=== PATIENT | female | born 1980 | race Caucasian/White ===

== ENCOUNTER 2017-06-18 14:43 | Inpatient (IN) | payer MEDICAID, OTHER ==
[~2017-06-18] VITALS: Ht 152.4 cm; Wt 74.9 kg
[~2017-06-18 14:43] MED LIST: ATEN25TA PO; HYDR12.5 PO; INSU100C10 SQ; INSU100V36 SQ; INSU100V9 SQ; LANTUS SUBCUT; PROP50TA3 MT
[2017-06-18 15:11] LABS: URINE HCG NEGATIVE (NEG)
[2017-06-18 15:13] LABS: CLARITY,URINE Turbid (Clear); COLOR,URINE Dark Yellow (Yellow); GLUCOSE, URINE Negative (Neg); KETONES,URINE Trace mg/dl (Neg); LEUKOCYTE ESTERASE ,URINE Moderate (Neg); NITRITES, URINE Negative (Neg); OCCULT BLOOD,URINE Small (Neg); PROTEIN,URINE 300 mg/dl (Neg)
[2017-06-18 15:19] LABS: UA COLLECTION TYPE CLN CATCH MIDSTREAM
[2017-06-18 15:20] LABS: BACTERIA,URINE FEW /HPF (Neg); RBC,URINE 0-2 /HPF (0-2); SQUAMOUS EPITHELIAL CELL,UR MANY /LPF (FEW)
[2017-06-18 15:21] LABS: MUCUS STRANDS FEW /LPF (Neg); WBC,URINE 30-50 /HPF (0-4)
[2017-06-18 15:21] LABS: BASOPHILS % (AUTO) 0.5 % (0-1); EOSINOPHILS % (AUTO) 0 % (0-6); HEMATOCRIT 45.3 % (35.0-45.0); LYMPHOCYTES # (AUTO) 2.2 X10'3 (1.1-4.8); LYMPHOCYTES % (AUTO) 38.6 % (21-51); MEAN CORPUSCULAR HEMOGLOBIN 26.2 PG (27.0-31.0); MEAN CORPUSCULAR HGB CONC 33.1 % (33.0-36.5); MEAN PLATELET VOLUME 8.4 FL (7.4-10.4); MONOCYTES # (AUTO) 0.5 X10'3 (0-0.9); MONOCYTES % (AUTO) 8.2 % (2-12); NEUTROPHILS % (AUTO) 52.7 % (42-75); PLATELET COUNT 257 X10'3 (140-440); RED BLOOD COUNT 5.74 X10'6 (4.20-5.60); RED CELL DISTRIBUTION WIDTH 13.7 % (11.5-14.5); WHITE BLOOD COUNT 5.7 X10'3 (4.5-11.0)
[2017-06-18 15:30] LABS: INR 0.9 INR; PROTHROMBIN TIME 9.4 SECONDS (9.0-12.0)
[2017-06-18] MEDS ORDERED: ondansetron/PF 4mg/2ml inj IV ONE ×2 (15:35→22:15)
[2017-06-18] MEDS ORDERED: normal saline 1000ML IV soln IVB ONE (15:35)
[2017-06-18 15:36] LABS: ALANINE AMINOTRANSFERASE 42 U/L (12-78); ALBUMIN 3.6 G/DL (3.4-5.0); ALBUMIN/GLOBULIN RATIO 0.7 (1.1-1.5); ALKALINE PHOSPHATASE 135 IU/L (46-116); ANION GAP 13 (8-16); ASPARTATE AMINO TRANSFERASE 18 U/L (10-37); BILIRUBIN,TOTAL 0.5 MG/DL (0.1-1.0); BLOOD UREA NITROGEN 8 MG/DL (7-18); BUN/CREATININE RATIO 10.3 (6.6-38.0); CHLORIDE 100 MMOL/L (99-107); CREATININE 0.78 MG/DL (0.40-0.90); GLUCOSE 206 MG/DL (70-104); LIPASE 149 U/L (73-393); POTASSIUM 3.3 MMOL/L (3.5-5.1); SODIUM 138 MMOL/L (135-145); TOTAL CARBON DIOXIDE 25.2 MMOL/L (24-32); TOTAL PROTEIN 8.5 G/DL (6.4-8.2); eGFR 83 ML/MIN
[2017-06-18] MEDS ORDERED: ondansetron 4mg rapidly disintigrating tab PO ONE (17:15)
[2017-06-18] MEDS ORDERED: HYDROmorphone inj. 0.5 MG/0.5 ML DISP.SYRIN IM ONE (17:55)
[2017-06-18] MEDS ORDERED: iohexol 300mg/ml 100ml inj. ONE (18:54)
[2017-06-18] MEDS ORDERED: METH10TA6 PO (19:53)
[2017-06-18] MEDS ORDERED: CefTRIAXone 2gm/NS 100ml IVPB 100 ML IV ONE (21:35)
[2017-06-18] MEDS ORDERED: HYDROmorphone 1 mg/ml syringe IV ONE (22:15)
[2017-06-18] MEDS ORDERED: HYDROmorphone 1 mg/ml syringe IV PRN (23:50)
[2017-06-18] MEDS ORDERED: magnesium hydroxide 30ml (MOM) UD suspension PO PRN (23:50)
[2017-06-18] MEDS ORDERED: vancomycin/NS 1 GM ADD-VANTAGE 250 ML IV ONE (23:50)
[2017-06-18] MEDS ORDERED: ondansetron/PF 4mg/2ml inj IV PRN (23:50)
[2017-06-18] MEDS ORDERED: mag hydrox/Alum hydrox/simeth 30ml oral suspension PO PRN (23:50)
[2017-06-18] MEDS ORDERED: dextrose 50%-water 50ml dispensing syringe IV PRN ×2 (23:50)
[2017-06-18] MEDS ORDERED: glucagon, human recombinant 1mg kit SUBCUT PRN (23:50)
[2017-06-18] MEDS ORDERED: potassium Cl 40MEQ/NS 500ml 500 ML IV PRN ×2 (23:50)
[2017-06-18] MEDS ORDERED: dextrose ORAL solution 15 GM/59 ML bottle PO PRN ×2 (23:50)
[2017-06-18] MEDS ORDERED: MESSAGE TO PHARMACY PO ONE (23:50)
[2017-06-18] MEDS ORDERED: potassium Cl 20 mEq SR tablet PO PRN ×2 (23:50)
[2017-06-18] MEDS ORDERED: acetaminophen 325mg tablet PO PRN ×2 (23:50)
[2017-06-18] MEDS ORDERED: potassium Cl 20 mEq SR tablet PO STA (23:56)
[2017-06-19] MEDS ORDERED: Insulin Detemir pen SQ ONE ×2 (00:05→01:42)
[2017-06-19] MEDS: normal saline 1000ml 1,000 ML IV SCH ×3 (01:03→12:53)
[2017-06-19] MEDS ORDERED: diphenhydrAMINE 25mg capsule PO PRN (01:55)
[2017-06-19 02:02] VITALS: BP 127/84
[2017-06-19 06:00] VITALS: BP 120/72
[2017-06-19 07:08] LABS: BASOPHILS % (AUTO) 0.5 % (0-1); EOSINOPHILS % (AUTO) 0.3 % (0-6); HEMATOCRIT 39.1 % (35.0-45.0); HEMOGLOBIN 13.1 g/dl (12.0-16.0); LYMPHOCYTES # (AUTO) 1.6 X10'3 (1.1-4.8); LYMPHOCYTES % (AUTO) 43.9 % (21-51); MEAN CORPUSCULAR HEMOGLOBIN 26.4 PG (27.0-31.0); MEAN CORPUSCULAR HGB CONC 33.4 % (33.0-36.5); MEAN CORPUSCULAR VOLUME 78.9 FL (78-98); MEAN PLATELET VOLUME 8.7 FL (7.4-10.4); MONOCYTES # (AUTO) 0.5 X10'3 (0-0.9); MONOCYTES % (AUTO) 12.8 % (2-12); NEUTROPHILS # (AUTO) 1.5 X10'3 (1.8-7.7); NEUTROPHILS % (AUTO) 42.5 % (42-75); PLATELET COUNT 208 X10'3 (140-440); RED BLOOD COUNT 4.95 X10'6 (4.20-5.60); WHITE BLOOD COUNT 3.6 X10'3 (4.5-11.0)
[2017-06-19 07:14] LABS: HEMOGLOBIN A1C 7.7 % (4.5-6.2)
[2017-06-19 07:20] LABS: ANION GAP 7 (8-16); BLOOD UREA NITROGEN 9 MG/DL (7-18); BUN/CREATININE RATIO 11.7 (6.6-38.0); CALCIUM 8.6 MG/DL (8.5-10.1); CHLORIDE 104 MMOL/L (99-107); CREATININE 0.77 MG/DL (0.40-0.90); GLUCOSE 229 MG/DL (70-104); MAGNESIUM 1.4 MG/DL (1.5-2.4); POTASSIUM 4.1 MMOL/L (3.5-5.1); SODIUM 139 MMOL/L (135-145); TOTAL CARBON DIOXIDE 28.3 MMOL/L (24-32); eGFR 84 ML/MIN
[2017-06-19] MEDS ORDERED: magnesium Cl slow-release 64mg tablet PO PRN (07:25)
[2017-06-19] MEDS: methimazole 5mg tablet PO SCH (07:59)
[2017-06-19] MEDS: magnesium Cl slow-release 64mg tablet PO PRN ×2 (08:00→14:03)
[2017-06-19] MEDS: HYDROmorphone 1 mg/ml syringe IV PRN ×3 (08:04→17:00)
[2017-06-19] MEDS: calamine LOTION TP PRN ×2 (08:08→17:02)
[2017-06-19] MEDS: insulin Lispro (HumaLOG) vial - multi-dose SQ SCH ×3 (09:09→19:21)
[2017-06-19 10:00] VITALS: BP 136/74
[2017-06-19] MEDS ORDERED: LACTOBACILLUS RHAMNOSUS GG 15 billion unit sprinkle caps PO SCH (15:59)
[2017-06-19 18:11] VITALS: BP 135/89
[2017-06-19] MEDS ORDERED: Insulin Detemir pen SQ SCH (21:00)
[2017-06-19] MEDS: CefTRIAXone 2gm/D5W 50ml ADVTG 100 ML IV SCH (21:07)
[2017-06-19 22:03] VITALS: BP 113/73
[2017-06-20 05:57] LABS: BASOPHILS % (AUTO) 0.5 % (0-1); EOSINOPHILS % (AUTO) 0 % (0-6); HEMATOCRIT 37.6 % (35.0-45.0); HEMOGLOBIN 12.8 g/dl (12.0-16.0); LYMPHOCYTES # (AUTO) 1.7 X10'3 (1.1-4.8); LYMPHOCYTES % (AUTO) 40.7 % (21-51); MEAN CORPUSCULAR HEMOGLOBIN 26.7 PG (27.0-31.0); MEAN CORPUSCULAR HGB CONC 34.2 % (33.0-36.5); MEAN CORPUSCULAR VOLUME 78.1 FL (78-98); MEAN PLATELET VOLUME 8.9 FL (7.4-10.4); MONOCYTES # (AUTO) 0.5 X10'3 (0-0.9); MONOCYTES % (AUTO) 11.4 % (2-12); NEUTROPHILS % (AUTO) 47.4 % (42-75); PLATELET COUNT 187 X10'3 (140-440); RED BLOOD COUNT 4.81 X10'6 (4.20-5.60); RED CELL DISTRIBUTION WIDTH 13.9 % (11.5-14.5); WHITE BLOOD COUNT 4.2 X10'3 (4.5-11.0)
[2017-06-20 06:00] VITALS: BP 94/60
[2017-06-20 06:25] LABS: ALBUMIN 2.8 G/DL (3.4-5.0); ANION GAP 7 (8-16); BLOOD UREA NITROGEN 6 MG/DL (7-18); BUN/CREATININE RATIO 13.3 (6.6-38.0); CALCIUM 8.8 MG/DL (8.5-10.1); CHLORIDE 105 MMOL/L (99-107); CREATININE 0.45 MG/DL (0.40-0.90); GLUCOSE 180 MG/DL (70-104); MAGNESIUM 1.4 MG/DL (1.5-2.4); POTASSIUM 4.3 MMOL/L (3.5-5.1); SODIUM 137 MMOL/L (135-145); TOTAL CARBON DIOXIDE 25.5 MMOL/L (24-32); eGFR > 90 ML/MIN
[2017-06-20] MEDS: methimazole 5mg tablet PO SCH (08:00)
[2017-06-20] MEDS: normal saline 1000ml 1,000 ML IV SCH (08:07)
[2017-06-20 10:00] VITALS: BP 112/80
[2017-06-20] MEDS: insulin Lispro (HumaLOG) vial - multi-dose SQ SCH ×2 (11:30→14:39)
[2017-06-20] MEDS ORDERED: magnesium oxide 400mg tablet PO ONE (11:55)
[2017-06-20] MEDS ORDERED: HYDROcodone/acetaminophen 10/325mg tab PO PRN (12:40)
[2017-06-20] MEDS ORDERED: HYDROcodone/acetaminophen 5mg/325mg tablet PO PRN (12:40)
[2017-06-20] MEDS: CefTRIAXone 2gm/D5W 50ml ADVTG 100 ML IV SCH (14:41)
[2017-06-20] MEDS: calamine LOTION TP PRN (14:42)
[2017-06-21] MEDS ORDERED: LACTOBACILLUS RHAMNOSUS GG 15 billion unit sprinkle caps PO SCH (07:30)
[2017-06-22 09:13] LABS: ANTITHROMBIN ACTIVITY 114 % (75-135); ANTITHROMBIN ANTIGEN 98 % (72-124); PROTEIN S, FREE 62 % (57-157); PROTEIN S, TOTAL 79 % (60-150)
== END 2017-06-20 16:45 | disposition home or self-care (01) | DRG 663 ==
LOC: ER 14:44 → ED HOLD 23:49 → ORTHO 4S 06-19 01:39
PROVIDERS: ADMIT Internal Medicine; ATTEND Internal Medicine
PROC: BW201ZZ Computerized Tomography (CT Scan) of Abdomen using Low Osmolar Contrast (ICD-10-PCS; principal; 2017-06-18)
DX: D73.5 Infarction of spleen (principal); K76.3 Infarction of liver; E10.65 Type 1 diabetes mellitus with hyperglycemia; E05.90 Thyrotoxicosis, unspecified without thyrotoxic crisis or storm; E87.6 Hypokalemia; N39.0 Urinary tract infection, site not specified; G89.29 Other chronic pain; M54.9 Dorsalgia, unspecified; R16.2 Hepatomegaly with splenomegaly, not elsewhere classified; R19.7 Diarrhea, unspecified; Z90.49 Acquired absence of other specified parts of digestive tract; Z59.0 Homelessness; Z79.4 Long term (current) use of insulin; Z88.0 Allergy status to penicillin; Z88.8 Allergy status to other drugs, medicaments and biological substances
CPT/HCPCS: 36415; 74160; 74176; 80048; 80053; 81001; 81025; 82009; 82948; 83036; 83605; 83690; 83735; 83891; 83894; 83898; 83912; 84145; 84443; 85025; 85240; 85300; 85301; 85303; 85305; 85306; 85610; 86147; 87040; 87070; 87324; 87449; 93306; 96365; 96372; 96375; 96376; 99285; J0696; J1170; J2270; J2405; J3370; J7030; Q0163; Q9967

== ENCOUNTER 2018-06-12 18:09 | Emergency (ER) | payer MEDICAID ==
[~2018-06-12] VITALS: Ht 152.4 cm; Wt 70.4 kg
[~2018-06-12 18:09] MED LIST changes: -ATEN25TA PO; -HYDR12.5 PO; -INSU100V36 SQ; -INSU100V9 SQ; +METH10TA6 PO; -PROP50TA3 MT
[2018-06-12 18:21] VITALS: BP 148/96
[2018-06-12] MEDS ORDERED: PNV1TABL75 PO (19:04)
[2018-06-12] MEDS ORDERED: INSU100V11 SQ (19:04)
[2018-06-12] MEDS ORDERED: INSU1KIT (19:06)
== END 2018-06-12 19:36 | disposition home or self-care (01) ==
LOC: ER 18:09
DX: O21.9 Vomiting of pregnancy, unspecified (principal); E10.9 Type 1 diabetes mellitus without complications; G89.29 Other chronic pain; Z60.2 Problems related to living alone; Z59.0 Homelessness; Z56.0 Unemployment, unspecified; Z88.0 Allergy status to penicillin; Z88.1 Allergy status to other antibiotic agents; Z88.8 Allergy status to other drugs, medicaments and biological substances; Z79.899 Other long term (current) drug therapy; Z3A.13 13 weeks gestation of pregnancy
CPT/HCPCS: 99283